=== PATIENT | female | born 1995 | race Caucasian/White ===

== ENCOUNTER 2016-09-23 19:55 | Emergency (ER) | payer SELFPAY ==
[2016-09-23 20:01] VITALS: BP 106/62; PULSE 103; TEMP 100; BMI 27.3
[2016-09-23] MEDS ORDERED: IBUPROFEN 400 MG TABLET (FP) PO ONE (20:02)
--- NOTE | 2016-09-23 20:02 | PDOC ---
History of Present Illness - General Chief Complaint: Sore Throat Stated Complaint: COLD SYMPTOMS Time Seen by Provider: 09/23/16 20:01 History Source: Patient - History of Present Illness Timing/Duration: reports: other Associated Symptoms: reports: earache, fever/chills, sore throat. denies: cough , facial pain, nasal congestion, nasal drainage Past History - Past Medical History Allergies/Adverse Reactions: Allergies Allergy/AdvReac Type Severity Reaction Status Date / Time No Known Allergies Allergy Verified 09/23/16 20:00 Home Medications: Ambulatory Orders No Home Medications 0 dose .ROUTE UTDICT 09/04/12 Suicide Attempt (Hx): No Other medical history: denies - Immunization History Immunization Up to Date: Yes - Psycho/Social/Smoking Cessation Hx Anxiety: No Suicidal Ideation: No Smoking Status: No Smoking History: Never smoked Number of Cigarettes Smoked Daily: 0 Hx Alcohol Use: No Substance Use Type: None Review of Systems - Review of Systems Constitutional: Yes: Fever HEENTM: Yes: Ear Pain, Throat Pain Respiratory: No: Cough *Physical Exam - Vital Signs Last Vital Signs Temp Pulse Resp BP Pulse Ox 100.0 F H 103 H 20 106/62 100 09/23/16 19:58 09/23/16 19:58 09/23/16 19:58 09/23/16 19:58 09/23/16 19:58 - Physical Exam General Appearance: Yes: Appropriately Dressed. No: Apparent Distress HEENT: positive: Normal Voice, Other (mild swellins to R tonsil, no exudates, no e/o [employer]). negative: Tonsillar Exudate Neck: positive: Supple. negative: Lymphadenopathy (R), Lymphadenopathy (L) Respiratory/Chest: negative: Respiratory Distress Integumentary: positive: Dry, Warm Neurologic: positive: Fully Oriented, Alert, Normal Mood/Affect Medical Decision Making - Medical Decision Making 09/23/16 20:38 20-year-old female, no significant history, here with sore throat with right ear pain and low-grade fever 3 days. No sick contacts. See exam Possibly viral pharyngitis, r/o strep Low grade temp in ED w/ R tonsilar enlargement without exudates or uvular deviation -motrin -rapid strep/cx 09/23/16 20:53 *DC/Admit/Observation/Transfer Diagnosis at time of Disposition: Viral pharyngitis - Discharge Dispostion Disposition: HOME Condition at time of disposition: Good - Patient Instructions Printed Discharge Instructions: DI for Viral Pharyngitis Additional Instructions: Your test for strep was negative. You most likely have a virus. Take 600 motrin over the counter every 6 hrs as needed for pain and return to ED for worsening of symptoms
== END 2016-09-23 21:01 | disposition home or self-care (01) ==
LOC: JERFT 19:55
DX: J02.9 Acute pharyngitis, unspecified (principal); B97.89 Other viral agents as the cause of diseases classified elsewhere
CPT/HCPCS: 87070; 87430; 99281-25

== ENCOUNTER 2020-07-20 20:22 | Emergency (ER) | payer OTHER ==
[2020-07-20 20:27] VITALS: BP 110/76; PULSE 86; TEMP 98.8; BMI 25.7
[2020-07-20] MEDS ORDERED: ACETAMINOPHEN 500 MG TABLET (FP) PO ONE (22:34)
[2020-07-20] MEDS ORDERED: METOCLOPRAMIDE HCL INJECTION 10 MG/2 ML VIAL IVPB ONE (22:34)
[2020-07-20] MEDS ORDERED: SODIUM CHLORIDE 1,000 ML IV STA (22:34)
[2020-07-20] MEDS ORDERED: ACETAMINOPHEN 325 MG TABLET (FP) ONE (22:52)
[2020-07-20] MEDS ORDERED: METOCLOPRAMIDE HCL INJECTION 10 MG/2 ML VIAL ONE (22:53)
== END 2020-07-21 01:41 | disposition home or self-care (01) ==
LOC: JER 20:22
PROC: 3E033GC Introduction of Other Therapeutic Substance into Peripheral Vein, Percutaneous Approach (ICD-10-PCS; principal; 2020-07-20)
PROC: 3E0337Z Introduction of Electrolytic and Water Balance Substance into Peripheral Vein, Percutaneous Approach (ICD-10-PCS; 2020-07-20)
DX: R51.9 Headache, unspecified (principal)
CPT/HCPCS: 70450-TC; 84703; 96361; 96374; 99284-25; C9803; U0003

== ENCOUNTER 2022-08-09 11:22 | Emergency (ER) | payer OTHER ==
[2022-08-09 11:29] VITALS: BP 109/66; PULSE 91; RESP 18; TEMP 98.7; BMI 24.6
[2022-08-09] MEDS ORDERED: SODIUM CHLORIDE 1,000 ML IV STA (11:47)
[2022-08-09] MEDS ORDERED: ACETAMINOPHEN 1000 MG/100 ML BAG IVPB ONE (11:47)
[2022-08-09] MEDS ORDERED: ACETAMINOPHEN INJECTION 100 ML IVPB ONE (12:09)
[2022-08-09 13:18] LABS: BASO % 0.7 % (0-2.0); EOS % 2.5 % (0-4.5); HEMATOCRIT 38.7 % (32.4-45.2); HEMOGLOBIN 13.8 GM/dL (10.7-15.3); LYMPH % 23.4 % (8-40); MCH 31.4 pg (25.7-33.7); MCHC 35.7 g/dl (32.0-36.0); MEAN CELL VOLUME 87.9 fl (80-96); MEAN PLT VOLUME 8.5 fl (7.5-11.1); MONO % 6.2 % (3.8-10.2); NEUT % 67.2 % (42.8-82.8); PLATELET COUNT 283 10^3/uL (134-434); RDW 12.7 % (11.6-15.6); WHITE BLOOD COUNT 7.7 K/mm3 (4.0-10.0)
[2022-08-09 13:19] LABS: INR 1.1 (0.83-1.09); PROTHROMBIN TIME (PATIENT) 12.7 SEC (9.7-13.0)
[2022-08-09 13:21] LABS: ACTIVATED PTT 36.9 SECONDS (25.2-36.5)
[2022-08-09 13:25] LABS: EPI CELLS 10 /uL (0-25.1); HYALINE CASTS 0 /uL (0-3.1); PH,URINE 6.5 (5.0-8.0); URINE APPEARANCE CLEAR; URINE BACTERIA 683 /uL (0-1359); URINE BILIRUBIN NEGATIVE (NEGATIVE); URINE COLOR YELLOW; URINE GLUCOSE (UA) NEGATIVE (NEGATIVE); URINE KETONE NEGATIVE (NEGATIVE); URINE LEUK ESTERASE NEGATIVE (NEGATIVE); URINE NITRITE NEGATIVE (NEGATIVE); URINE PROTEIN NEGATIVE (NEGATIVE); URINE RBC 17 /uL (0-23.9); URINE UROBILINOGEN 0.2 mg/dL (0.2-1.0); URINE WBC 6 /uL (0-25.8)
[2022-08-09 13:39] LABS: HCG,QUALITATIVE URINE Positive
== END 2022-08-09 17:09 | disposition home or self-care (01) ==
LOC: JER 11:22
PROC: 3E033NZ Introduction of Analgesics, Hypnotics, Sedatives into Peripheral Vein, Percutaneous Approach (ICD-10-PCS; principal; 2022-08-09)
PROC: 3E0337Z Introduction of Electrolytic and Water Balance Substance into Peripheral Vein, Percutaneous Approach (ICD-10-PCS; 2022-08-09)
DX: O03.9 Complete or unspecified spontaneous abortion without complication (principal); N93.9 Abnormal uterine and vaginal bleeding, unspecified
CPT/HCPCS: 36415; 76817-TC; 81003; 84702; 84703; 85025; 85610; 85730; 86850; 86900; 86901; 96361; 96374; 99284-25